=== PATIENT | male | born 1995 | race Caucasian/White ===

== ENCOUNTER 2020-04-03 11:44 | Emergency (ER) | payer MEDICARE, SELFPAY ==
[2020-04-03 11:48] VITALS: BP 116/82; PULSE 73; RESP 16; TEMP 36.2; O2SAT 98; BMI 38.0
--- NOTE | 2020-04-03 11:55 | ED_ITS ---
HPI - Wound/Laceration General: Chief Complaint: Wound/Laceration Stated Complaint: Rt hand Lac Time Seen by Provider: 04/03/20 11:54 History of Present Illness: HPI narrative: Patient is a 24-year-old male comes to the ED with a laceration on right hand. Patient cut hand just prior to arrival on a tin can when he was trying to open up a can of chili. Patient has full range of motion with finger. Bleeding controlled. Patient unsure of his last tetanus shot and would like to get an updated shot today. Associated symptoms: Denies chills, fever(s), nausea or vomiting Review of Systems Const: Denies: fever(s), chills or fatigue Eyes: Denies: change in vision or eye discomfort ENMT: Denies: throat pain, odynophagia, nasal discharge or nasal congestion Card: Denies: chest pain, palpitations, edema, swelling of feet/ankles, dyspnea on exertion or orthopnea Resp: Denies: dyspnea, productive cough or non-productive cough GI: Denies: abdominal pain, nausea, vomiting, diarrhea, constipation or hematochezia : Denies: flank pain, difficulty urinating, dysuria or hematuria Musc: Denies: neck pain, back pain or extremity swelling Skin/Breast: Reports: new lesions (laceration to hand-right thumb); Denies: rash Neuro: Denies: headache(s), numbness in extremities or weakness in extremities PFSH ED PFSH: Social History Smoking and tobacco status: never smoked Alcohol intake: never Substance/Drug Use: never Physical Exam Const: COMMON NORMALS: no acute distress, patient oriented x3 and alert GENERAL APPEARANCE: cooperative and comfortable HENMT: COMMON NORMALS: normocephalic HEAD & SCALP: normocephalic MOUTH: Normal oral and palatal mucosa present THROAT: posterior oropharynx normal and uvula midline Neck/C-Spine: COMMON NORMALS: supple GENERAL: Yes normal visual inspection Resp: COMMON NORMALS: normal respiratory effort, No retractions, No use of accessory muscles and clear to auscultation bilaterally AUSCULTATION: clear to auscultation bilaterally Cardio: COMMON NORMALS: regular rate, regular rhythm, S1 normal heart sound present, S2 normal heart sound present, No gallops present (Cardio), No clicks present (Cardio), No murmurs present (Cardio) and Peripheral pulses 2+ throughout RATE: regular rate RHYTHM: regular rhythm HEART SOUNDS: S1 normal heart sound present and S2 normal heart sound present PERIPHERAL PULSES: Peripheral pulses 2+ throughout GI: COMMON NORMALS: Normal to inspection, nondistended, normoactive bowel giorgio nds present, Soft to palpation, non-tender and no masses PALPATION: Yes Soft to palpation : COMMON NORMALS: Yes no CVA tenderness BLADDER/KIDNEY EXAM: Yes no CVA tenderness Back/Pelvis: COMMON NORMALS: no CVA tenderness Extremity: NARRATIVE EXTREMITY EXAM: Patient has a 1 cm superficial laceration to right thumb. Patient has full range of motion of thumb. No active bleeding. GENERAL: Yes normal exam except as noted Neuro: COMMON NORMALS: patient oriented x3 and moves all extremities SENSORIUM/ORIENTATION: Yes alert Skin: NARRATIVE SKIN EXAM: Patient has a 1 cm superficial laceration to right thumb. Patient has full range of motion of thumb. No active bleeding. GENERAL SKIN EXAM: dry skin Procedures Laceration Laceration 1: Site: hand (thumb) Side (If applicable): right Size (cm): 1 Description: linear Depth: simple, single layer Local Anesthetic: lidocaine 1% Amount of anesthesia used (mL): 10 Pre-repair: irrigated extensively (with normal saline And CHG swab.) Skin layer closed with: nylon Size (cm): 4-0 Number of sutures: 4 Technique: simple, interrupted Course Vital Signs: Vital signs: Vital Signs Temperature 97.2 F L 04/03/20 11:48 Pulse Rate 73 04/03/20 11:48 Respiratory Rate 16 04/03/20 11:48 Blood Pressure 116/82 04/03/20 11:48 Pulse Oximetry 98 04/03/20 11:48 MDM - Wound/Laceration MDM Narrative: Medical decision making narrative: Patient is a 24-year-old male comes to the ED with a laceration to right thumb. Patient was given an updated tetanus shot while here in the ED. Patient has full range of motion of right thumb. laceration irrigated extensively with normal saline and cleaned with CHG swab. Local lidocaine 1% was used and 4 sutures were placed to close laceration. Bandage placed and patient was discharged with a prescription for cephalexin as prophylactic treatment. Have sutures removed in 7 to 10 days. Return to ED precautions given. Patient understood and agreed with plan. Discharge Plan Discharge Patient Disposition: Home Clinical Impression: Laceration Condition: Stable Prescriptions: New cephalexin 500 mg capsule 500 mg PO Q6H 3 Days Qty: 12 RF: 0 Discharge Orders: Discharge ED (Routine); Ordered 04/03/20 Ordered By: Jaime Wagner Referrals: Cely De Leon DO [Primary Care Provider] - Discharge Diet: Regular Discharge Activity: Limit activity as instructed Patient Instructions: Suture Care (ED), Finger Laceration (ED) Activity Restrictions/Additional Instructions: Take full course of antibiotics as prescribed. Keep laceration site clean and dry for the next 48 hours. Then after that you can clean and re-bandage daily. Watch for signs of infection such as redness, warmth, increased tenderness and puslike drainage. If you see the signs of infection return to the ED, urgent care or PCP for reevaluation. call your PCP to schedule a follow-up appointment for reevaluation and suture removal in about 10 days. Continue taking all home meds. Follow discharge plans as discussed. You can return to the ED if symptoms worsen. Coding Level of Care Code ED Orthotic Assistant for Maren Fwpramod Exam Comprehensive
[2020-04-03] MEDS: lidocaine 1% INJ 20 mL INJECTION (12:20)
[2020-04-03] MEDS: tetanus-dipt-pertussis 0.5 mL SDV IM (12:20)
== END 2020-04-03 13:05 | disposition home or self-care (01) ==
LOC: ER 12:44
PROVIDERS: Emergency Provider Physician Assistant; PCP Family Medicine
DX: S61.011A Laceration without foreign body of right thumb without damage to nail, initial encounter (principal); W26.8XXA Contact with other sharp object(s), not elsewhere classified, initial encounter; Z23 Encounter for immunization
CPT/HCPCS: 12001; 12345; 90471; 90715; 99281; 99282

== ENCOUNTER 2021-05-23 22:36 | Emergency (ER) | payer MEDICARE, SELFPAY ==
[2021-05-23 22:38] VITALS: BP 122/81; PULSE 86; RESP 18; TEMP 36.6; O2SAT 97; BMI 35.4
--- NOTE | 2021-05-23 23:10 | ED_ITS ---
HPI - Neck Pain/Injury General: Chief Complaint: Neck Pain/Injury Stated Complaint: GENERALIZED WEAKNESS Time Seen by Provider: 05/23/21 23:10 History of Present Illness: 25-year-old male patient comes in [facility] for abnormal facial tingling and neck pain. Patient reports he had been playing a video game for prolonged time and had laid back and put his hands behind his neck and was massaging it and felt a sudden sensation with warmth and tingling going from the back of his neck across his face. Patient at this time states that it was sore but he feels better since coming to the ER except for getting sick when getting the shot for nausea. Patient appears well. Patient has Tourette's syndrome and GERD. Patient takes no routine medications. MD complaint: neck pain Onset (ago): minute(s) Place: home Radiation: right lateral Severity: mild Relieving factors: none Review of Systems General: Reports: 10 or more systems reviewed and unremarkable except in HPI and below Musc: Reports: neck pain Neuro: Reports: other (numbness in face) PFSH ED PFSH: Medical History Tourette disorder Surgical History History of appendectomy Family History Mother Diabetes Grandmother Cancer Liver and Stomach Grandfather Cancer Social History Smoking and tobacco status: never smoked Alcohol intake: never Physical Exam Const: COMMON NORMALS: alert HENMT: COMMON NORMALS: normocephalic and TM's normal bilaterally HEAD & SCALP: normocephalic TYMPANIC MEMBRANE: TM's normal bilaterally MOUTH: Normal oral and palatal mucosa present and tongue normal THROAT: posterior oropharynx normal Eye: COMMON NORMALS: Equal, round and reactive pupils present and EOMs intact bilaterally PUPIL: Yes Equal, round and reactive pupils present Neck/C-Spine: COMMON NORMALS: no meningeal signs CERVICAL SPINE: Yes normal cervical lordosis, Yes cervical ROM abnormal and Yes Paracervical muscle tenderness right Resp: COMMON NORMALS: normal respiratory effort and clear to auscultation bilaterally AUSCULTATION: clear to auscultation bilaterally Cardio: COMMON NORMALS: regular rate and regular rhythm RATE: regular rate RHYTHM: regular rhythm GI: COMMON NORMALS: Soft to palpation PALPATION: Yes Soft to palpation Extremity: COMMON NORMALS: normal to inspection Neuro: DOMINGO COMA SCALE: document GCS findings Domingo coma scale eye opening: Spontaneous Domingo coma scale verbal response: Orientated [place] coma scale motor response: Obey commands [place] coma scale total score: 15 SENSORIUM/ORIENTATION: Yes alert MENINGEAL SIGNS: Yes no meningeal signs SPEECH: speech normal GAIT: Yes Normal gait present OTHER: NIHSS-0 Psych: COMMON NORMALS: cooperative Course Vital Signs: Vital signs: Vital Signs Temperature 97.9 F 05/23/21 22:38 Pulse Rate 86 05/23/21 22:38 Respiratory Rate 18 05/23/21 22:38 Blood Pressure 122/81 05/23/21 22:38 Pulse Oximetry 97 05/23/21 22:38 MDM - Neck Pain/Injury Medical Decision Making 25-year-old male patient comes in today with complaints of sharp pain to the right upper neck with sudden warmth and numbness sensation going across his face. On exam patient appears normal. No palsy or abnormal facial drooping is noted. Patient has equal strength throughout. No drift is noted in the extremities. NIH stroke scale is 0. [place] Coma Scale is 15. Vital signs are normal. Differential diagnosis includes muscle strain, cervical radiculopathy, intervertebral disc disease, facet arthritis. Patient had fully recovered on evaluation. Description of incident suggest that patient had pinched his occipital nerve and sensation has returned to normal. Patient does have a history of Tourette's and with discussion we will arrange for patient have primary care follow-up. Patient and family both reported understanding of care plan and need for follow-up. Discharge Plan Discharge Patient Disposition: Home Clinical Impression: Tourette syndrome Acute cervical myofascial strain Qualifiers: Encounter type: initial encounter Qualified Code(s): S16.1XXA - Strain of muscle, fascia and tendon at neck level, initial encounter Condition: Stable Prescriptions: No Action pantoprazole [Protonix] 40 mg tablet,delayed release (DR/EC) 40 mg PO DAILY Qty: 60 0RF Discharge Orders: Discharge ED (Routine); Ordered 05/23/21 Ordered By: Marcial Weiss Referrals: Cely De Leon DO [Primary Care Provider] - Discharge Diet: Usual diet Discharge Activity: Increase activity as tolerated Patient Instructions: Cervical Strain (DC) Activity Restrictions/Additional Instructions: Use Tylenol for pain. Gentle stretching and range of motion exercises of the neck. Use warmth to the neck for further comfort. Follow-up with primary care for further instructions. I will place a case management referral to primary care. Return to the ER for new concerns. Coding Level of Care Code ED Motors Assembler for Maren Mcallister
[2021-05-23 23:29] VITALS: BP 124/78; PULSE 88; RESP 18; O2SAT 98
--- NOTE | 2021-05-28 13:20 | DCPLANNER ---
biofuels engineering manager had message to speak with patient about getting a primary care physician, unable to speak with patient at this time.
== END 2021-05-23 23:32 | disposition home or self-care (01) ==
PROVIDERS: Emergency Provider Nurse Practitioner Family; PCP Family Medicine
DX: S16.1XXA Strain of muscle, fascia and tendon at neck level, initial encounter (principal); F95.2 Tourette's disorder; X58.XXXA Exposure to other specified factors, initial encounter
CPT/HCPCS: 99283

== ENCOUNTER → 2023-01-17 11:58 | Outpatient (BNVA) | payer MEDICARE, SELFPAY | PROVIDERS: PCP Family Medicine; Visit Provider Family Medicine | DX: F41.9 Anxiety disorder, unspecified (principal); E66.9 Obesity, unspecified; F95.2 Tourette's disorder; K59.04 Chronic idiopathic constipation; K31.84 Gastroparesis; K04.7 Periapical abscess without sinus; F17.200 Nicotine dependence, unspecified, uncomplicated; Z71.6 Tobacco abuse counseling; Z68.35 Body mass index [BMI] 35.0-35.9, adult; Z83.3 Family history of diabetes mellitus | CPT/HCPCS: 80053; 80061; 84439; 84443; 85025 ==